=== PATIENT | female | born 1950 | race Caucasian/White ===

== ENCOUNTER → 2019-03-12 | Outpatient (REF) | payer OTHER ==
[2019-03-12 20:15] LABS: APPEARANCE, URINE HAZY (CLEAR); BACTERIA, URINE AUTO 2+ (NEGATIVE); BILIRUBIN, URINE AUTO NEGATIVE (NEGATIVE); BLOOD, URINE BLOOD 3+ (NEGATIVE); COLOR, URINE YELLOW (YELLOW); GLUCOSE, URINE (UA) AUTO NEGATIVE (NEGATIVE); KETONE, URINE AUTO NEGATIVE (NEGATIVE); LEUKOCYTE ESTERASE, URINE AUTO 3+ (NEGATIVE); MUCUS, URINE SMALL (NEGATIVE); NITRITE, URINE AUTO POSITIVE (NEGATIVE); PROTEIN, URINE AUTO NEGATIVE (NEGATIVE); RBC, URINE AUTO 109 /HPF (0-3); SPECIFIC GRAVITY URINE AUTO 1.016 (1.002-1.035); SQUAMOUS EPITHELIAL CELL UR AU 1 /HPF (0-6); UROBILINOGEN, URINE AUTO 0.2 mg/dL (0.0-2.0); WBC, URINE AUTO TNTC /HPF (0-3)
== END ==
LOC: M LAB REF 09:45
PROVIDERS: ATTEND Physician Assistant Medical
DX: N39.0 Urinary tract infection, site not specified (principal)

== ENCOUNTER → 2019-04-05 | Outpatient (REF) | payer BC, OTHER ==
[2019-04-05 17:10] LABS: ALBUMIN 4.5 GM/DL (3.2-5.2); ALT/SGPT 31 U/L (12-78); BILIRUBIN,TOTAL 0.4 MG/DL (0.2-1.0); BLOOD UREA NITROGEN 15 MG/DL (7-18); CALCIUM LEVEL 9.3 MG/DL (8.8-10.2); CARBON DIOXIDE LEVEL 26 MEQ/L (21-32); CHLORIDE LEVEL 109 MEQ/L (98-107); CHOLESTEROL LEVEL 205 MG/DL (<200); CREATININE FOR GFR 0.89 MG/DL (0.55-1.30); GLOMERULAR FILTRATION RATE > 60.0 (>45); GLUCOSE, FASTING 88 MG/DL (70-100); HDL CHOLESTEROL 56 MG/DL (>40); LDL CHOLESTEROL 131 MG/DL (<100); NON-HDL-C 149 MG/DL; POTASSIUM SERUM 4.9 MEQ/L (3.5-5.1); SODIUM LEVEL 140 MEQ/L (136-145); TOTAL PROTEIN 7.2 GM/DL (6.4-8.2); TRIGLYCERIDES LEVEL 91 MG/DL (<150)
[2019-04-05 17:26] LABS: BASO # 0.1 10^3/uL (0.0-0.2); BASO % 0.9 % (0.0-1.0); EOS # 0.2 10^3/uL (0.0-0.50); EOS % 2.5 % (0.0-3.0); HEMATOCRIT 44.8 % (36.0-47.0); HEMOGLOBIN 14.3 g/dl (12.0-15.5); LYMPH # 1.4 10^3/uL (1.5-4.5); LYMPH % 20.8 % (24.0-44.0); MEAN CORPUSCULAR HEMOGLOBIN 28.5 pg (27.0-33.0); MEAN CORPUSCULAR HGB CONC 31.9 g/dl (32.0-36.5); MEAN CORPUSCULAR VOLUME 89.4 fl (80.0-96.0); MONO # 0.5 10^3/uL (0.0-0.8); MONO % 7.4 % (0.0-5.0); NEUTROPHILS # 4.7 10^3/uL (1.8-7.7); NEUTROPHILS % 67.8 % (36.0-66.0); PLATELET COUNT, AUTOMATED 188 10^3/uL (150-450); RED BLOOD COUNT 5.01 10^6/uL (4.00-5.40); WHITE BLOOD COUNT 6.9 10^3/uL (4.0-10.0)
== END ==
LOC: M LAB REF 16:20
PROVIDERS: ATTEND Family Medicine
DX: K92.1 Melena (principal); R13.10 Dysphagia, unspecified; R03.0 Elevated blood-pressure reading, without diagnosis of hypertension; Z87.891 Personal history of nicotine dependence; R19.8 Other specified symptoms and signs involving the digestive system and abdomen; Z00.00 Encounter for general adult medical examination without abnormal findings

== ENCOUNTER 2019-05-11 10:07 | Day surgery (SDC) | payer BC, OTHER ==
[~2019-05-11] VITALS: Ht 162.6 cm; Wt 75.7 kg
[~2019-05-11 10:07] MED LIST: NS 1,000 ML IV ONE
[2019-05-11] MEDS ORDERED: LIDOCAINE 2% INJ 100 MG/5 ML SDV (FOR ANES.) As Ordered ONE (11:35)
[2019-05-11] MEDS ORDERED: PROPOFOL 200 MG/20 ML VIAL As Ordered ONE (11:35)
--- NOTE | 2019-05-11 11:40 | ROOR ---
Patient Name: Freida Henry Procedure Date: 05/11/2019 11:28 AM Date of : 1950 Age: 68 Room: [facility] Gender: Female Note Status: Finalized Procedure: Upper GI endoscopy Indications: Dysphagia Providers: Adalid Ornelas Jr, MD Referring MD: Stephenie Colunga DO Requesting Provider: Medicines: Propofol per Anesthesia Complications: No immediate complications. Procedure: Pre-Anesthesia Assessment: - Prior to the procedure, a History and Physical was performed, and patient medications and allergies were reviewed. The patient is competent. The risks and benefits of the procedure and the sedation options and risks were discussed with the patient. All questions were answered and informed consent was obtained. Patient identification and proposed procedure were verified by the physician and the nurse in the pre-procedure area and in the procedure room. Mental Status Examination: alert and oriented. Airway Examination: normal oropharyngeal airway and neck mobility. Respiratory Examination: clear to auscultation. CV Examination: normal. ASA Grade Assessment: II - A patient with mild systemic disease. After reviewing the risks and benefits, the patient was deemed in satisfactory condition to undergo the procedure. The anesthesia plan was to use moderate sedation / analgesia (conscious sedation). Immediately prior to administration of medications, the patient was re-assessed for adequacy to receive sedatives. The heart rate, respiratory rate, oxygen saturations, blood pressure, adequacy of pulmonary ventilation, and response to care were monitored throughout the procedure. The physical status of the patient was re-assessed after the procedure. The Endoscope was introduced through the mouth, and advanced to the second part of duodenum. The upper GI endoscopy was accomplished without difficulty. The patient tolerated the procedure well. Findings: The upper third of the esophagus, middle third of the esophagus and lower third of the esophagus were normal. Non-severe esophagitis was found at the gastroesophageal junction. Biopsies were taken with a cold forceps for histology. The cardia, gastric fundus, gastric body, gastric antrum, prepyloric region of the stomach and pylorus were normal. The duodenal bulb, first portion of the duodenum and second portion of the duodenum were normal. Impression: - Normal upper third of esophagus, middle third of esophagus and lower third of esophagus. - Non-severe reflux esophagitis. Rule out Osorio's esophagus. Biopsied. - Normal cardia, gastric fundus, gastric body, antrum, prepyloric region of the stomach and pylorus. - Normal duodenal bulb, first portion of the duodenum and second portion of the duodenum. Recommendation: - Discharge patient to home (ambulatory). - Return to my office as previously scheduled. - Discharge patient to home (ambulatory). - Use Protonix (pantoprazole) 40 mg PO daily daily. Adalid Ornelas MD Adalid Ornelas Jr, MD 05/11/2019 11:39:29 AM Electronically signed by Adalid Ornelas Jr, MD Number of Addenda: 0 Note Initiated On: 05/11/2019 11:28 AM Estimated Blood Loss: Estimated blood loss: none.
--- NOTE | 2019-05-11 11:59 | ROOR ---
Patient Name: Freida Henry Procedure Date: 05/11/2019 11:29 AM Date of : 1950 Age: 68 Room: [facility] Gender: Female Note Status: Finalized Procedure: Colonoscopy Indications: High risk colon cancer surveillance: Personal history of colonic polyps Recent GI bleed Providers: Adalid Ornelas Jr, MD Referring MD: Stephenie Colunga DO Requesting Provider: Medicines: Propofol per Anesthesia Complications: No immediate complications. Procedure: Pre-Anesthesia Assessment: - Prior to the procedure, a History and Physical was performed, and patient medications and allergies were reviewed. The patient is competent. The risks and benefits of the procedure and the sedation options and risks were discussed with the patient. All questions were answered and informed consent was obtained. Patient identification and proposed procedure were verified by the physician and the nurse in the pre-procedure area and in the procedure room. Mental Status Examination: alert and oriented. Airway Examination: normal oropharyngeal airway and neck mobility. Respiratory Examination: clear to auscultation. CV Examination: normal. ASA Grade Assessment: II - A patient with mild systemic disease. After reviewing the risks and benefits, the patient was deemed in satisfactory condition to undergo the procedure. The anesthesia plan was to use moderate sedation / analgesia (conscious sedation). Immediately prior to administration of medications, the patient was re-assessed for adequacy to receive sedatives. The heart rate, respiratory rate, oxygen saturations, blood pressure, adequacy of pulmonary ventilation, and response to care were monitored throughout the procedure. The physical status of the patient was re-assessed after the procedure. The Colonoscope was introduced through the anus and advanced to the cecum, identified by appendiceal orifice and ileocecal valve. The colonoscopy was performed without difficulty. The patient tolerated the procedure well. The quality of the bowel preparation was adequate. Findings: The descending colon, transverse colon, ascending colon, appendiceal orifice and ileocecal valve appeared normal. A small polyp was found in the cecum. The polyp was sessile. The polyp was removed with a hot snare. Resection and retrieval were complete. To close a defect after polypectomy, one hemostatic clip was successfully placed. There was no bleeding at the end of the procedure. A few small and large-mouthed diverticula were found in the hepatic flexure. Many small and large-mouthed diverticula were found in the sigmoid colon. Non-bleeding external and internal hemorrhoids were found during endoscopy. The hemorrhoids were moderate and severe. Impression: - The descending colon, transverse colon, ascending colon, appendiceal orifice and ileocecal valve are normal. - One small polyp in the cecum, removed with a hot snare. Resected and retrieved. Clip was placed. - Diverticulosis at the hepatic flexure. - Diverticulosis in the sigmoid colon. - Non-bleeding external and internal hemorrhoids. Recommendation: - Repeat colonoscopy in 5-10 years for surveillance based on pathology results. Adalid Ornelas MD Adalid Ornelas Jr, MD 05/11/2019 11:59:04 AM Electronically signed by Adalid Ornelas Jr, MD Number of Addenda: 0 Note Initiated On: 05/11/2019 11:29 AM Estimated Blood Loss: Estimated blood loss: none.
[2019-05-11 12:35] VITALS: BP 157/91
== END 2019-05-11 12:47 | disposition home or self-care (01) ==
LOC: M OPP 10:07
PROVIDERS: ATTEND Surgery
DX: K63.5 Polyp of colon (principal); K57.30 Diverticulosis of large intestine without perforation or abscess without bleeding; K64.8 Other hemorrhoids; R13.10 Dysphagia, unspecified; K21.0 Gastro-esophageal reflux disease with esophagitis; Z86.010 Personal history of colon polyps

== ENCOUNTER → 2020-05-13 | Outpatient (CLI) | payer BC, OTHER ==
--- NOTE | 2020-05-13 15:02 | REP ---
Clinical: Lung screening. History smoking. Comparison: None Technique: Axial low-dose noncontrast images from the thoracic inlet to the upper abdomen using lung screening technique. Findings: The lung dillard are well-aerated. No consolidation, significant nodule or mass lesion is appreciated. No pleural effusion/reaction or pneumothorax. Tracheobronchial tree is patent. Mediastinum demonstrates mild atherosclerotic changes of the coronary arteries without cardiomegaly. Impression: Lung-RADS category I. No nodule or suspicious abnormality. Management recommendations include annual low-dose CT surveillance. Electronically Signed by Omar Webster MD 05/13/2020 02:53 P
== END ==
LOC: M RAD 12:39
PROVIDERS: ATTEND Internal Medicine Pulmonary Disease
DX: Z12.2 Encounter for screening for malignant neoplasm of respiratory organs (principal); Z87.891 Personal history of nicotine dependence

== ENCOUNTER → 2021-06-11 | Outpatient (CLI) | payer BC, OTHER ==
--- NOTE | 2021-06-11 23:35 | REP ---
INDICATION: PERSONAL H/O NICOTINE DEPEND COMPARISON: 05/13/2020 TECHNIQUE: Axial noncontrast images from the thoracic inlet to the upper abdomen using low-dose lung screening technique (LDCT). FINDINGS: The bilateral lung dillard are well aerated and relatively clear. No acute consolidation, suspicious nodule or mass. Mild scarring left base noted. No effusion. No pneumothorax. IMPRESSION: Lung-RADS category 1. Management recommendations include annual low-dose CT surveillance. <Electronically signed by Omar Webster > 06/11/21 [id number]
== END ==
LOC: M RAD 13:32
PROVIDERS: ATTEND Internal Medicine Pulmonary Disease
DX: Z87.891 Personal history of nicotine dependence (principal)

== ENCOUNTER → 2021-09-23 | Outpatient (CLI) | payer BC, OTHER ==
--- NOTE | 2021-09-23 15:08 | REP ---
INDICATION: PAIN IN LEFT ANKLE AND JOINTS OF LEFT FOOT. COMPARISON: None. TECHNIQUE: 2 x [address] scanning through the left ankle was obtained and reconstructed in both sagittal and coronal planes. FINDINGS: There is a nondisplaced acute distal fibular fracture. There is a smoothly marginated well corticated ossific density seen distal to the medial malleolus likely an old healed injury or accessory ossicle. Distal to the distal fibular tip there is a mm sized ossific density which is smoothly marginated and well corticated. The subtalar joints are within normal limits. The mortise is symmetric. Seen just lateral to the lateral most portion of the anterior subtalar joint there is a tiny flake like ossific density along the os calcis. 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 IMPRESSION: 1. Distal fibular fracture as described above. 2. Subtle fracture involving the os calcis as described above. 3. Chronic changes as described above. <Electronically signed by Pedro Jackson > 09/23/21 [id number]
--- NOTE | 2021-09-23 15:11 | REP ---
INDICATION: PAIN IN LEFT FOOT/ANKLE. COMPARISON: None. TECHNIQUE: 2 x 2 mm increments using helical technique with sagittal and coronal reconstructions. FINDINGS: See the CT examination of the ankle report. There are no additional acute fractures. Mild degenerative changes are seen involving the metatarsal-phalangeal joints and intra digital joints. IMPRESSION: Degenerative changes involving the foot. See the CT report for acute fracture discussion no additional acute fracture seen on this exam. <Electronically signed by Pedro Jackson > 09/23/21 [id number]
== END ==
LOC: M RAD 14:27
PROVIDERS: ATTEND Physician Assistant Surgical
DX: M25.572 Pain in left ankle and joints of left foot (principal); M19.072 Primary osteoarthritis, left ankle and foot; S82.492A Other fracture of shaft of left fibula, initial encounter for closed fracture; X58.XXXA Exposure to other specified factors, initial encounter; Y92.9 Unspecified place or not applicable; Y93.9 Activity, unspecified; Y99.9 Unspecified external cause status

== ENCOUNTER → 2022-07-26 | Outpatient (CLI) | payer MEDICARE, BC, OTHER ==
[2022-07-26 14:11] LABS: ALBUMIN 4.2 GM/DL (3.2-5.2); CALCIUM LEVEL 8.9 MG/DL (8.8-10.2); CREATININE FOR GFR 1.02 MG/DL (0.55-1.30); GLOMERULAR FILTRATION RATE 56.9 (>39); PHOSPHORUS LEVEL 3.3 MG/DL (2.5-4.9); POTASSIUM SERUM 4.2 MEQ/L (3.5-5.1)
== END ==
LOC: M LAB 13:06
PROVIDERS: ATTEND Physician Assistant
DX: U07.1 COVID-19 (principal)

== ENCOUNTER → 2022-08-05 | Outpatient (CLI) | payer MEDICARE, BC, OTHER | LOC: M RAD 08:25 | PROVIDERS: ATTEND Physician Assistant | DX: Z12.2 Encounter for screening for malignant neoplasm of respiratory organs (principal); Z87.891 Personal history of nicotine dependence; I70.0 Atherosclerosis of aorta; I25.10 Atherosclerotic heart disease of native coronary artery without angina pectoris; R91.8 Other nonspecific abnormal finding of lung field ==

== ENCOUNTER → 2022-11-05 | Outpatient (CLI) | payer MEDICARE, BC, OTHER | LOC: M PLAIMG 11:14 | PROVIDERS: ATTEND Physician Assistant | DX: J84.10 Pulmonary fibrosis, unspecified (principal); I25.10 Atherosclerotic heart disease of native coronary artery without angina pectoris ==

== ENCOUNTER → 2023-07-15 | Outpatient (REF) | payer MEDICARE, BC, OTHER | LOC: M LAB REF 12:10 | PROVIDERS: ATTEND Physician Assistant | DX: R30.0 Dysuria (principal) ==

== ENCOUNTER → 2023-12-28 | Outpatient (CLI) | payer MEDICARE, BC, OTHER ==
[~2023-12-28] MED LIST changes: +ISOVUE-370 76% 100ML VIAL ONE; -NS 1,000 ML IV ONE
== END ==
LOC: M PLAIMG 11:12
PROVIDERS: ATTEND Physician Assistant
DX: J47.9 Bronchiectasis, uncomplicated (principal); I70.0 Atherosclerosis of aorta; I25.10 Atherosclerotic heart disease of native coronary artery without angina pectoris; K44.9 Diaphragmatic hernia without obstruction or gangrene
CPT/HCPCS: 71270; Q9967